=== PATIENT | female | born 1940 | race Caucasian/White ===

== ENCOUNTER → 2017-08-06 | Outpatient (CLI) | payer OTHER ==
[~2017-08-06] VITALS: Ht 170.2 cm; Wt 104.3 kg
[~2017-08-06] MED LIST: CENTRUM SILVER1 EAC4 PO; COZAAR 25 MG TA25 M1 PO; XALATAN2.5 ML OPHTHALMIC
--- NOTE | ~2017-08-06 | P ---
[facility] [place] [address] PROCEDURE REPORT Name: CHANDLER EDWARDS Room #: REG [facility]#: [id number] Admission: 08/06/17 Attend Phys: Gavin Huynh Discharge: Date of : 42 Report #: [id number] THIS REPORT FOR: //name// CC: Gavin Scott DO DATE OF SERVICE: 08/06/2017 PROCEDURE PERFORMED: Upper endoscopy with esophageal dilation. HISTORY OF PRESENT ILLNESS: The patient is a 76-year-old female who was seen by myself in the office on 07/22/2017 with complaints of dysphagia primarily to solids. Apparently, has had a previous history of a Schatzki's ring in the past. She is not on any antacid therapy. DESCRIPTION OF PROCEDURE: The risks and benefits of the procedure were explained to the patient, those risks including but not limited to bleeding, perforation, the risk of sedation. She understood these risks and gave informed consent. Sedation was given using propofol and ketamine per Anesthesia. Next, using a standard Olympus upper endoscope, the scope was placed in the patient's mouth and advanced under direct vision through the esophagus, stomach and into the second portion of the duodenum. The larynx was normal in appearance. The upper and mid esophagus was normal in appearance. In the distal esophagus, a moderate Schatzki's ring was noted. The scope passed without difficulty. There was a medium size hiatal hernia noted. Overall, the gastric mucosa was normal. The pylorus was normal and patent. The duodenal bulb, first and second portion were all normal. The scope was then brought back into the patient's stomach and a Savary guidewire was inserted through the scope, leaving the guidewire in place as the scope was then withdrawn. Next, a 48-[place] Savary dilation of the esophagus was performed without difficulty. The wire and dilator removed. The scope was reintroduced into the patient's stomach. There was a small mucosal tear without bleeding noted at the Schatzki's ring. No further dilations were performed. The scope was then withdrawn and the procedure terminated. The patient tolerated the procedure well. IMPRESSION: 1. Schatzki's ring, status post dilation. 2. Hiatal hernia. 3. Otherwise, normal upper endoscopy. RECOMMENDATIONS: 1. Observe the patient post-dilation. 2. Repeat on a p.r.n. basis. [address] [address] PROCEDURE REPORT Name: CHANDLER EDWARDS Cecily [id number] Admission: 08/06/17 Attend Phys: Gavin Huynh Discharge: Date of : 42 Report #: [id number] Thank you for allowing me to participate in her care. <ELECTRONICALLY SIGNED> By: Gavin Soto MD 08/13/17 1020 0926 22 Gavin Soto MD /[email or web address]
== END | disposition home or self-care (01) ==
LOC: GI 07:40
DX: K22.2 Esophageal obstruction (principal); K44.9 Diaphragmatic hernia without obstruction or gangrene; I10 Essential (primary) hypertension; Z90.49 Acquired absence of other specified parts of digestive tract; Z98.890 Other specified postprocedural states; Z68.36 Body mass index [BMI] 36.0-36.9, adult
CPT/HCPCS: 62110; 62900

== ENCOUNTER → 2020-09-25 | Outpatient (CLI) | payer OTHER | END | disposition home or self-care (01) | LOC: GI 06:08 | PROVIDERS: ATTEND Specialist | DX: D64.9 Anemia, unspecified (principal); K29.80 Duodenitis without bleeding; Z88.8 Allergy status to other drugs, medicaments and biological substances ==